=== PATIENT | male | born 1985 | race Caucasian/White ===

== ENCOUNTER 2022-11-07 09:49 | Emergency (ER) | payer OTHER ==
[2022-11-07 09:59] VITALS: BP 137/87; PULSE 86; RESP 16; TEMP 97.4; BMI 22.7
[2022-11-07] MEDS ORDERED: KETOROLAC TROMETHAMINE 30 MG/1 ML VIAL IM ONE (10:13)
[2022-11-07] MEDS ORDERED: KETOROLAC TROMETHAMINE 30 MG/1 ML VIAL ONE (10:14)
== END 2022-11-07 10:53 | disposition home or self-care (01) ==
LOC: JERFT 09:49 → JER 09:49 → JERFT 10:53
PROC: 3E0233Z Introduction of Anti-inflammatory into Muscle, Percutaneous Approach (ICD-10-PCS; principal; 2022-11-07)
DX: G56.02 Carpal tunnel syndrome, left upper limb (principal)
CPT/HCPCS: 73110-TC-LT-FY; 99285-25

== ENCOUNTER 2023-10-24 18:18 | Emergency (ER) | payer OTHER ==
[2023-10-24 18:28] VITALS: BP 121/86; PULSE 117; RESP 18; TEMP 97.9; BMI 21.1
[2023-10-24] MEDS ORDERED: LIDOCAINE HCL 1%, 10 MG/ML (20ML VIAL) ONE (19:58)
[2023-10-24] MEDS: LIDOCAINE HCL 1%, 10 MG/ML (50 mL VIAL) SQ ONE (20:31)
[2023-10-24] MEDS ORDERED: IBUPROFEN 600 MG TABLET (FP) PO ONE (20:41)
[2023-10-24] MEDS ORDERED: SULFAMETHOXAZOLE/TRIMETHOPRIM 800MG/160MG D.S. TABLET ONE (20:41)
[2023-10-24] MEDS: SULFAMETHOXAZOLE/TRIMETHOPRIM 800MG/160MG D.S. TABLET PO ONE (20:42)
[2023-10-24] MEDS: IBUPROFEN 600 MG TABLET (FP) PO ONE (20:42)
== END 2023-10-24 20:49 | disposition home or self-care (01) ==
LOC: JER 18:18 → JERFT 18:18
PROC: 0H98XZZ Drainage of Buttock Skin, External Approach (ICD-10-PCS; principal; 2023-10-24)
DX: L02.32 Furuncle of buttock (principal)
CPT/HCPCS: 99283-25